=== PATIENT | female | born 1980 | race Caucasian/White ===

== ENCOUNTER 2017-03-25 07:58 | Emergency (ER) | payer SELFPAY ==
[2017-03-25 08:55] LABS: BASOPHIL 0.2 % (0-2); EOSINOPHIL 1.4 % (0-5); HCT 41.6 % (37.0-47.0); HGB 13.9 g/dl (12.5-16.0); LYMPHOCYTE 37.1 % (15-48); MCH 29.5 pg (25.0-31.0); MCHC 33.4 g/dL (32.0-36.0); MCV 88.3 fL (78.0-100.0); MONOCYTE 8.1 % (0-12); MPV 9.8 fL (6.0-9.5); NEUTROPHIL 53.2 % (41-80); PLT 242 K/uL (150-400); RBC 4.71 M/uL (4.20-5.40); RDW 12.9 % (11.5-14.0); WBC 8.1 K/uL (4.0-10.5)
[2017-03-25 09:06] LABS: CREATININE 0.7 mg/dL (0.5-1.0)
[2017-03-25 09:49] LABS: BILIRUBIN NEGATIVE (NEGATIVE); BLOOD NEGATIVE Ery/uL (NEGATIVE); COLOR YELLOW (YELLOW); GLUCOSE (U) NORMAL (NORMAL); KETONE (U) NEGATIVE (NEGATIVE); LEUKOCYTES TRACE Leu/uL (NEGATIVE); NITRITE POSITIVE (NEGATIVE); PROTEIN NEGATIVE (NEGATIVE); UROBILINOGEN 0.2 mg/dL (0.2-1.0)
[2017-03-25 09:52] LABS: CLARITY SLIGHTLY HAZY (CLEAR)
[2017-03-25 09:56] LABS: BACTERIA 3+; URINARY RBC RARE
== END 2017-03-25 11:23 | disposition home or self-care (01) ==
LOC: FER 07:58
PROVIDERS: Internal Medicine
DX: G44.209 Tension-type headache, unspecified, not intractable (principal); R11.0 Nausea; R82.90 Unspecified abnormal findings in urine; F17.200 Nicotine dependence, unspecified, uncomplicated
CPT/HCPCS: 36415; 80048; 81001; 85025; J1885; J2765